=== PATIENT | male | born 1990 | race Caucasian/White ===

== ENCOUNTER 2020-09-05 10:11 | Emergency (ER) | payer BC, OTHER ==
[2020-09-05 10:20] VITALS: BP 135/77; PULSE 60; TEMP 98.3; BMI 25.1
--- NOTE | 2020-09-05 10:25 | PDOC ---
History of Present Illness - General History Source: Patient - History of Present Illness Timing/Duration: other Associated Symptoms: reports: nausea/vomiting <Shawn Hernandez - Last Filed: 09/05/20 13:22> <Jaquelin Redd - Last Filed: 09/05/20 14:36> - General Chief Complaint: Pain, Acute Stated Complaint: RT SIDE LWR BCK PAIN (KIDNEY) Time Seen by Provider: 09/05/20 10:21 Past History - Medical History Anemia: No Asthma: No Cancer: No Cardiac Disorders: No CVA: No COPD: No CHF: No Dementia: No Diabetes: No GI Disorders: No Disorders: No HTN: No Hypercholesterolemia: No Liver Disease: No Seizures: No Thyroid Disease: No - Surgical History Abdominal Surgery: Yes (inguinal RIGHT SIDE 2010 and 2013) Orthopedic Surgery: Yes (dislocated finger on rigth hand) - Immunization History Immunization Up to Date: Yes - Psycho-Social/Smoking History Smoking History: Former smoker Have you smoked in the past 12 months: Yes Number of Cigarettes Smoked Daily: 6 If you are a former smoker, when did you quit?: 02013 Information on smoking cessation initiated: No 'Breaking Loose' booklet given: 03/17/15 - Substance Abuse Hx (Audit-C & DAST Scrn) How often the patient has a drink containing alcohol: Monthly or less Score: In Men: 4 or > Positive; In Women: 3 or > Positive: 1 Screen Result (Pos requires Nsg. Audit-10AR): Negative In the last yr the pt used illegal drug/Rx for NonMed reason: Yes Score: Yes response is considered Positive: 1 Screen Result (Positive result requires Nsg. DAST-10): Positive <Shawn Hernandez - Last Filed: 09/05/20 13:22> <Jaquelin Redd - Last Filed: 09/05/20 14:36> - Medical History Allergies/Adverse Reactions: Allergies Allergy/AdvReac Type Severity Reaction Status Date / Time adhesive Allergy Mild Rash Verified 09/05/20 10:13 Latex, Natural Rubber Allergy Mild Rash Verified 09/05/20 10:13 Home Medications: Ambulatory Orders Acetaminophen [Tylenol .Extra-Strength -] 1,000 mg PO Q6H PRN #100 tablet 04/03/15 Ibuprofen [Advil -] 600 mg PO Q4H PRN #120 tablet 04/03/15 Hydrocodone/Ibuprofen [VICOPROFEN 7.5/200 mg [NF MEDICATION]] 1 tab PO Q6H PRN #8 tablet MDD 4 doses 09/05/20 Ibuprofen [Motrin -] 800 mg PO QID #28 tablet 09/05/20 Ondansetron HCl [Zofran] 4 mg PO Q8H #12 tablet 09/05/20 Tamsulosin HCl [Flomax] 0.4 mg PO DAILY #7 capsule 09/05/20 Review of Systems - Review of Systems Constitutional: No: Chills, Fever ABD/GI: Yes: Nausea, Vomiting. No: Blood Streaked Bowels, Constipated, Diarrhea, Rectal Bleeding : Yes: Flank Pain. No: Burning, Dysuria, Hematuria <Shawn Hernandez - Last Filed: 09/05/20 13:22> *Physical Exam - Vital Signs Last Vital Signs Temp Pulse Resp BP Pulse Ox 98.3 F 60 18 135/77 99 09/05/20 10:13 09/05/20 10:13 09/05/20 10:13 09/05/20 10:13 09/05/20 10:13 - Physical Exam General Appearance: Yes: Appropriately Dressed, Moderate Distress HEENT: positive: Normal Voice Neck: positive: Supple Respiratory/Chest: negative: Respiratory Distress Gastrointestinal/Abdominal: positive: Soft. negative: Tender Musculoskeletal: positive: CVA Tenderness (R) Integumentary: positive: Dry, Warm Neurologic: positive: Fully Oriented, Alert, Normal Mood/Affect <Shawn Hernandez - Last Filed: 09/05/20 13:22> - Vital Signs Last Vital Signs Temp Pulse Resp BP Pulse Ox 98.3 F 60 18 135/77 99 09/05/20 10:13 09/05/20 10:13 09/05/20 10:13 09/05/20 10:13 09/05/20 10:13 <Jaquelin Redd - Last Filed: 09/05/20 14:36> ED Treatment Course - LABORATORY CBC & Chemistry Diagram: 09/05/20 10:44 09/05/20 10:44 <Shawn Hernandez - Last Filed: 09/05/20 13:22> - LABORATORY CBC & Chemistry Diagram: 09/05/20 10:44 09/05/20 10:44 - ADDITIONAL ORDERS Additional order review: Laboratory Results 09/05/20 09/05/20 12:40 10:44 Sodium 140 Potassium 3.9 Chloride 106 Carbon Dioxide 25 Anion Gap 9 BUN 17.7 Creatinine 1.3 Est GFR (CKD-EPI)AfAm 84.86 Est GFR (CKD-EPI)NonAf 73.22 Random Glucose 119 H Calcium 10.4 H Total Bilirubin 1.1 H AST 22 ALT 28 Alkaline Phosphatase 64 Total Protein 7.9 Albumin 4.9 Urine Color Dk yellow Urine Appearance Clear Urine pH 7.5 Ur Specific [place] 1.036 H Urine Protein 2+ H Urine Glucose (UA) Negative Urine Ketones 4+ H Urine Blood 2+ H Urine Nitrite Negative Urine Bilirubin Negative Urine Urobilinogen 1.0 Ur Leukocyte Esterase Negative Urine WBC (Auto) 6 Urine RBC (Auto) 403 Urine Casts (Auto) 3 U Epithel Cells (Auto) 12 Urine Bacteria (Auto) 44 09/05/20 10:44 RBC 5.58 MCV 89.5 MCHC 35.7 RDW 13.0 MPV 8.5 Neutrophils % 88.2 H D Lymphocytes % 6.3 L D Monocytes % 5.1 Eosinophils % 0.0 D Basophils % 0.4 - Medications Given in the ED: ED Medications Discontinued Medications Generic Name Dose Route Start Last Admin Trade Name Freq PRN Reason Stop Dose Admin Sodium Chloride 1,000 mls @ 1,000 mls/hr 09/05/20 10:27 09/05/20 10:47 Normal Saline - IV 09/05/20 11:26 1,000 mls/hr ASDIR STA Administration Ketorolac Tromethamine 30 mg 09/05/20 10:27 09/05/20 10:47 Toradol Injection - IVPUSH 09/05/20 10:28 30 mg ONCE ONE Administration Ondansetron HCl 4 mg 09/05/20 10:27 09/05/20 10:47 Zofran Injection IVPUSH 09/05/20 10:28 4 mg ONCE ONE Administration Tamsulosin HCl 0.4 mg 09/05/20 12:26 09/05/20 12:48 Flomax - PO 09/05/20 12:27 0.4 mg ONCE ONE Administration <Jqauelin Redd - Last Filed: 09/05/20 14:36> Medical Decision Making - Medical Decision Making 09/05/20 10:24 30 yo M, no sig hx, here w/ R flank pain w/ n/v x 2 days. No dysuria, hematuria, f/c. No h/o same. No h/o renal stones but has fmhx of same see exam Possible renal colic -pain control -zofran -IVF -labs -CT 09/05/20 12:26 CT read as 3 mm proximal right ureteral stone with some hydro-. Also seen are bilateral nonobstructing renal stones. Labs unremarkable except for mild leukocytosis at 13 which could be secondary to nausea vomiting. UA pending at this time. Upon reassessment patient reports symptoms have resolved. Anticipate discharge with appropriate medication, strainer and urology follow-up 09/05/20 13:22 UA unremarkable. Pt stable for dc <Shawn Hernandez - Last Filed: 09/05/20 13:22> - Medical Decision Making I reviewed the case with the mid-level practitioner and agree with the mid-level practitioner's assessment, diagnosis and disposition. <Jaquelin Redd - Last Filed: 09/05/20 14:36> Discharge - Discharge Information Problems reviewed: Yes <Shawn Hernandez - Last Filed: 09/05/20 13:22> <Jaquelin Redd - Last Filed: 09/05/20 14:36> - Discharge Information Clinical Impression/Diagnosis: Renal stone Condition: Improved Disposition: HOME - Additional Discharge Information Prescriptions: Tamsulosin HCl [Flomax] 0.4 mg PO DAILY #7 capsule Ibuprofen [Motrin -] 800 mg PO QID #28 tablet Hydrocodone/Ibuprofen [VICOPROFEN 7.5/200 mg [NF MEDICATION]] 1 tab PO Q6H PRN #8 tablet MDD 4 doses PRN Reason: Severe Pain Ondansetron HCl [Zofran] 4 mg PO Q8H #12 tablet - Follow up/Referral Referrals: Simon Drake MD [Primary Care Provider] - Osbaldo Pacheco MD., MD [Staff Physician] - - Patient Discharge Instructions Patient Printed Discharge Instructions: DI for Kidney Stones Additional Instructions: Your CAT scan showed a 3 mm stone on the right side which will make its way down to your bladder over the next several days. Take medication as directed and use strainer in an attempt to Collect urine at home Please follow-up with Dr. Esparza of urology in 1 to 2 weeks. If symptoms persist and or worsen, return to the ER
--- OUTSIDE RECORDS SUMMARY | 2020-09-05 10:25 | XMS ---
:1990 Author Organization [facility] Support Name Relationship Address Phone UE Unavailable Unavailable Unavailable EDISON [employer] MOTHER [address] [place] [address] Re-disclosure Warning The records that you are about to access may contain information from federally- assisted alcohol or drug abuse programs. If such information is present, then the following federally mandated warning applies: This information has been disclosed to you from records protected by federal confidentiality rules (42 CFR part 2). The federal rules prohibit you from making any further disclosure of this information unless further disclosure is expressly permitted by the written consent of the person to whom it pertains or as otherwise permitted by 42 CFR part 2. A general authorization for the release of medical or other information is NOT sufficient for this purpose. The Federal rules restrict any use of the information to criminally investigate or prosecute any alcohol or drug abuse patient.The records that you are about to access may contain highly sensitive health information, the redisclosure of which is protected by Article 27-F of the [facility] Public Health law. If you continue you may haveaccess to information: Regarding HIV / AIDS; Provided by facilities licensed or operated by the [facility] Office of Mental Health; or Provided by the [facility] Office for People With Developmental Disabilities. If such information is present, then the following [facility] mandated warning applies: This information has been disclosed to you from confidential records which are protected by state law. State law prohibits you from making any further disclosure of this information without the specific written consent of the person to whom it pertains, or as otherwise permitted by law. Any unauthorized further disclosure in violation of state law may result in a fine or long term sentence or both. A general authorization for the release of medical or other information is NOT sufficient authorization for further disclosure. Insurance Providers Payer name Policy type / Policy ID Covered Covered alliance party's Policy Plan Coverage type alliance party ID relationship to [place] Information [place] OUT OF [id number] SP [id number]
[2020-09-05] MEDS ORDERED: SODIUM CHLORIDE 1,000 ML IV STA (10:27)
[2020-09-05] MEDS ORDERED: ONDANSETRON 4 MG/2 ML VIAL IVPUSH ONE (10:27)
[2020-09-05] MEDS ORDERED: KETOROLAC TROMETHAMINE 30 MG/1 ML VIAL IVPUSH ONE (10:27)
[2020-09-05] MEDS ORDERED: KETOROLAC TROMETHAMINE 30 MG/1 ML VIAL ONE (10:34)
[2020-09-05 10:56] LABS: BASO % 0.4 % (0-2.0); HEMATOCRIT 49.9 % (35.4-49); HEMOGLOBIN 17.9 GM/dL (11.7-16.9); LYMPH % 6.3 % (8-40); MCHC 35.7 g/dl (32.0-35.9); MEAN CELL VOLUME 89.5 fl (80-96); MEAN PLT VOLUME 8.5 fl (7.5-11.1); MONO % 5.1 % (3.8-10.2); NEUT % 88.2 % (42.8-82.8); PLATELET COUNT 213 K/MM3 (134-434); RBC 5.58 M/mm3 (4.00-5.60); WHITE BLOOD COUNT 13.2 K/mm3 (4.0-10.0)
[2020-09-05 11:28] LABS: ALBUMIN 4.9 g/dl (3.4-5.0); BILIRUBIN,TOTAL 1.1 mg/dL (0.2-1); BLOOD UREA NITROGEN 17.7 mg/dL (7-18); CALCIUM 10.4 mg/dL (8.5-10.1); CREATININE 1.3 mg/dL (0.55-1.3); POTASSIUM 3.9 mmol/L (3.5-5.1); TOT PROT 7.9 g/dl (6.4-8.2)
[2020-09-05] MEDS ORDERED: TAMSULOSIN HCL 0.4 MG CAP PO ONE (12:26)
[2020-09-05] MEDS ORDERED: TAMSULOSIN HCL 0.4 MG CAP ONE (12:43)
[2020-09-05 13:14] LABS: EPI CELLS 12 /uL (0-25.1); HYALINE CASTS 3 /uL (0-3.1); PH,URINE 7.5 (5.0-8.0); URINE APPEARANCE CLEAR; URINE BACTERIA 44 /uL (0-1359); URINE BILIRUBIN NEGATIVE (NEGATIVE); URINE COLOR DK YELLOW; URINE GLUCOSE (UA) NEGATIVE (NEGATIVE); URINE KETONE 4+ (NEGATIVE); URINE LEUK ESTERASE NEGATIVE (NEGATIVE); URINE NITRITE NEGATIVE (NEGATIVE); URINE PROTEIN 2+ (NEGATIVE); URINE RBC 403 /uL (0-23.9); URINE WBC 6 /uL (0-25.8)
== END 2020-09-05 13:31 | disposition home or self-care (01) ==
LOC: JER 10:11
PROC: 3E0333Z Introduction of Anti-inflammatory into Peripheral Vein, Percutaneous Approach (ICD-10-PCS; principal; 2020-09-05)
PROC: 3E033GC Introduction of Other Therapeutic Substance into Peripheral Vein, Percutaneous Approach (ICD-10-PCS; 2020-09-05)
PROC: 3E0337Z Introduction of Electrolytic and Water Balance Substance into Peripheral Vein, Percutaneous Approach (ICD-10-PCS; 2020-09-05)
DX: N20.0 Calculus of kidney (principal)
CPT/HCPCS: 36415; 74176-TC; 80053; 81003; 85025; 87077; 87086; 99284-25